=== PATIENT | male | born 1965 | race Caucasian/White ===

== ENCOUNTER → 2022-02-13 09:30 | Outpatient (BNVA) | payer OTHER, SELFPAY | PROVIDERS: PCP Nurse Practitioner; Visit Provider Nurse Practitioner | DX: E78.5 Hyperlipidemia, unspecified (principal); Z86.39 Personal history of other endocrine, nutritional and metabolic disease | CPT/HCPCS: 80053; 80061; 82306; 84443; 85025 ==

== ENCOUNTER 2022-04-22 09:47 | Emergency (ER) | payer OTHER, SELFPAY ==
[2022-04-22 10:16] VITALS: BP 157/99; PULSE 64; RESP 18; TEMP 36.8; O2SAT 96; BMI 24.7
--- NOTE | 2022-04-22 10:34 | ECG_ITS ---
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 Measurements Intervals [place] Rate: 57 P: 36 OK: 177 QRS: 5 QRSD: 96 T: 30 QT: 409 QTc: 400 Interpretive Statements SINUS BRADYCARDIA No previous ECG available for comparison Electronically Signed On 04-22-2022 18:33:58 CDT by Brian Israel M.D. [id number]
[2022-04-22 10:53] LABS: Basophils % 0.3 %; Eosinophils # 0.1 10^3/uL (0.0-0.8); Eosinophils % 0.9 %; Hematocrit 49.5 % (42.0-52.0); Hemoglobin 16.8 g/dL (11.7-16.6); Lymphocytes # 2.4 10^3/uL (0.8-4.8); Lymphocytes % 24.9 %; Mean Corpuscular HGB Conc 33.9 g/dL (30.0-36.0); Mean Corpuscular Hemoglobin 32.8 pg (28.0-34.0); Mean Corpuscular Volume 96.7 fl (80-94); Mean Platelet Volume 11.2 fL (7.4-10.4); Monocytes # 0.8 10^3/uL (0.2-0.9); Monocytes % 8.6 %; Neutrophils # 6.36 10^3/uL (1.8-7.7); Nucleated Red Blood Cells % 0 %; Platelet Count 321 10^3/cmm (130-400); Red Blood Count 5.12 10^6/uL (4.1-5.3); White Blood Count 9.8 10^3/uL (4.0-10.0)
[2022-04-22 11:18] LABS: Add Urine Microscopic? NO; Charge for UA Resulting for Rev
[2022-04-22 11:21] LABS: Lactate (Lactic Acid level) 1.3 mmol/L (0.5-2.2)
[2022-04-22 11:22] LABS: Alanine Aminotransferase 25 U/L (0-41); Albumin Level 4.7 g/dL (3.5-5.2); Alkaline Phosphatase 85 U/L (40-130); Anion Gap 16.1 (5-19); Aspartate Amino Transferase 18 U/L (0-40); Blood Urea Nitrogen 15 mg/dL (6-20); Calcium 9.6 mg/dL (8.5-10.5); Carbon Dioxide 26 mmol/L (22-29); Chloride 98 mmol/L (98-107); Globulin 3.3 g/dL (1.3-4.6); Glomerular Filtration Rate 99.6 mL/min (90-130); Glucose 87 mg/dL (65-115); Lipase 20 U/L (13-60); Osmolality Calculated 282 mOsm/kg (285-295); Potassium 4.1 mmol/L (3.5-5.1); Sodium 136 mmol/L (136-145); Total Bilirubin 0.5 mg/dL (0.15-1.2)
[2022-04-22 11:31] LABS: Bilirubin Urine Neg (Negative); Blood Urine Neg (Negative); Glucose Urine UA Norm (Normal); Ketones Urine Negative (Negative); Leukocyte Esterase Urine Negative (Negative); Nitrate Urine Negative (Negative); Protein Urine Neg (Negative); Specific Gravity, Urine 1.015 (1.005-1.030); Urine Appearance Clear (CLEAR); Urine Color Yellow (Yellow); Urobilinogen Urine Norm (Negative); pH Urine 5 (5-7)
--- NOTE | 2022-04-22 11:46 | CT_ITS ---
WS: [id number] CT ABDOMEN PELVIS TECHNIQUE: Contrast-enhanced CT of the abdomen and pelvis with coronal and sagittal reformatted image s. CLINICAL INFORMATION: abd pn COMPARISON: None. DLP: 558.[address] scans at [facility] use at least one of these dose optimization techniques: automated e xposure control; mA and/or kV adjustment per patient size (includes targeted exams where dose is matc hed to clinical indication); or iterative reconstruction. FINDINGS: Mild diffuse fatty infiltration liver. Normal portal vein and splenic vein. Prominent gallstone in th e gallbladder measuring 2.0 CM. No gallbladder wall thickening or pericholecystic fluid. Lung bases are well aerated. Adrenal glands are normal. Normal pancreatic parenchymal enhancement. Ad renal glands are normal. No hydronephrosis in either kidney. LEFT peripelvic renal cysts/extrarenal p charli. No hydronephrosis in either kidney. Pelvic phleboliths. Normal caliber abdominal aorta. Aortic calcification. Retroaortic LEFT renal vein. Sigmoid diverticulosis. No evidence of high-grade small or large bowel obstruction. Normal appendix are lower quadrant. Disc space narrowing worse L5-S 1. Fat-containing inguinal hernia. CT/CT abdomen pelvis w con* [id number] IMPRESSION: 1. Normal appendix in the Right Lower quadrant. No evidence of acute appendici tis. 2. Sigmoid diverticulosis. No evidence of acute diverticulitis. 3. No evidence of small or large bowel obstruction. 4. Prominent gallstone in the gallbladder measuring 2.0 CM. No gallbladder wal l thickening or pericholecystic fluid. 5. Mild diffuse fatty infiltration liver. 6. No other acute findings.
[2022-04-22] MEDS: iohexol 350 mg/mL 100 mL Btl IV (12:02)
[2022-04-22 14:04] VITALS: BP 137/97; PULSE 73; RESP 16; O2SAT 97
[2022-04-22 14:05] VITALS: BP 137/97; PULSE 67; RESP 16; O2SAT 97
--- NOTE | 2022-04-23 01:02 | W.ED.ABDPA2 ---
HPI - Abdominal Pain General: Chief Complaint: Abdominal Pain Stated Complaint: Abd pain Time Seen by Provider: 04/22/22 10:22 History of Present Illness: 57-year-old male patient presents to the emergency department with diffuse abdominal pain. Patient states he does have history of a gallstone that he has had for like 20 years. Patient states he has had some nausea but no vomiting patient states that he actually had a very significant appetite. Patient states he just wanted to be checked to make sure something was not wrong. Patient denies any fever. Patient denies any urinary symptoms. Patient denies any flank pain or back pain. Patient denies any other complaints Associated Symptoms: Denies change in bowel habits, chills, constipation, GI cramping, diarrhea, dysuria, fever(s), hematuria, hematemesis, nausea, syncope and vomiting Review of Systems Const: Denies: fever(s), chills, body aches, change in appetite, change in weight, fatigue, malaise or diaphoresis Eyes: Denies: change in vision, blurry vision, blind spots, photophobia, eye discomfort, eye discharge, eye redness, floaters or seeing flashes ENMT: Denies: throat pain, uvular edema, enlarged tonsils, odynophagia, hoarseness, mouth pain, swelling of lips/tongue, oral sores, bleeding gums, dental pain, dry mouth, ear or mastoid pain, ear discharge, change in hearing, tinnitus, disequilibrium, nasal discharge, nasal congestion, post nasal drip or sinus pain Card: Denies: chest pain, palpitations, irregular heart rhythm, edema, swelling of feet/ankles, lightheadedness, syncope, pre-syncope, dyspnea on exertion, orthopnea, leg pain with exertion or acrocyanosis Resp: Denies: dyspnea, productive cough, non-productive cough, wheezing, stridor, pain on inspiration, change in phlegm color, hemoptysis or chest congestion GI: Denies: nausea, vomiting, hematemesis, dysphagia, diarrhea, constipation, GI cramping, change in bowel habits or rectal pain : Denies: flank pain, dysuria, urinary frequency, urinary urgency, urinary hesitancy or hematuria Musc: Denies: neck pain, back pain, extremity pain, extremity swelling, joint pain, joint swelling, joint redness, joint warmth or deformity Skin/Breast: Denies: rash, pruritus, erythema, sores, new lesions, changes in skin color or dry skin Neuro: Denies: headache(s), numbness in extremities, weakness in extremities, sensory changes, lack of coordination, difficulty walking, frequent falls, dizziness, vertigo, confusion, behavioral changes, Slurred speech present, difficulty communicating thoughts or seizure-like activity Psych: Denies: anxiety, depression, suicidal ideation or homicidal ideation Endo: Denies: polyuria, polydipsia, tired all the time, cold intolerance, excessive sweating, flushing, hot flashes or heat intolerance Porfirio/Lymph: Denies: easy bruising, easy bleeding, petechiae, purpura, enlarged lymph nodes or tender lymph nodes All/Imm: Denies: urticaria, throat swelling, tongue swelling, facial swelling, acute wheezing or itchy eyes PFSH ED PFSH: Social History Smoking and tobacco status: never smoked Physical Exam Const: COMMON NORMALS: no acute distress, patient oriented x3, healthy appearing, alert and well nourished GENERAL APPEARANCE: cooperative, comfortable, well kempt and well developed; not ill appearing ORIENTATION/CONSCIOUSNESS: Yes awake, Yes oriented to person, Yes oriented to place and Yes oriented to time HENMT: COMMON NORMALS: normocephalic, atraumatic, hearing grossly normal bilaterally, external ears normal, EAC's normal, TM's normal bilaterally, Normal external nose present, Normal nasal mucous membranes and turbinates present and moist oral mucous membranes HEAD & SCALP: normal to inspection, normocephalic and atraumatic FACE & SINUS: normal facial exam, sinuses nontender and face symmetric NOSE: Normal external nose present, Normal nares present, Normal nasal mucous membranes and turbinates present, No nasal discharge present and Abnormal external nose present EXTERNAL EAR: Yes external ears normal and Yes mastoids normal EXTERNAL AUDITORY CANAL: EAC's normal TYMPANIC MEMBRANE: TM's normal bilaterally MOUTH: Normal oral and palatal mucosa present, lip normal, tongue normal and Normal salivary glands and ducts present THROAT: no uvular edema Eye: COMMON NORMALS: Equal, round and reactive pupils present, EOMs intact bilaterally, conjunctivae normal, no scleral icterus and no papilledema GENERAL EYE: appearance normal, both eyes and all related structures EYELID: eyelids normal CONJUNCTIVA: Yes conjunctivae normal SCLERA: sclerae normal CORNEA: Yes corneas normal PUPIL: Yes Equal, round and reactive pupils present DIRECT OPHTHALMOSCOPY: Yes no papilledema Neck/C-Spine: COMMON NORMALS: full ROM, no lymphadenopathy, supple, no meningeal signs, no JVD and Thyroid normal GENERAL: Yes normal visual inspection and Yes trachea midline THYROID: Thyroid normal CERVICAL SPINE: Yes cervical ROM normal Lymph: LYMPHATIC: no lymphadenopathy noted and no lymphedema noted Chest: COMMONS NORMALS: normal inspection of the chest and normal palpation of entire chest wall Resp: COMMON NORMALS: normal respiratory effort, No retractions, No use of accessory muscles and clear to auscultation bilaterally EFFORT & INSPECTION: Yes able to speak in complete sentences and Yes symmetric chest movement AUSCULTATION: clear to auscultation bilaterally Cardio: COMMON NORMALS: no JVD, regular rate and regular rhythm RATE: regular rate RHYTHM: regular rhythm GI: COMMON NORMALS: Normal to inspection, nondistended, normoactive bowel sounds present, Soft to palpation, non-tender, No hepatosplenomegaly present, no masses and no bruits INSPECTION: Yes normal to inspection AUSCULTATION: Yes normoactive bowel sounds PALPATION: Yes Soft to palpation and Yes No hepatosplenomegaly present PERCUSSION: normal to percussion RECTAL EXAM: Yes deferred : COMMON NORMALS: Yes no CVA tenderness BLADDER/KIDNEY EXAM: Yes no CVA tenderness Back/Pelvis: COMMON NORMALS: no CVA tenderness, thoracic and lumbar spine normal to inspection, no thoracic nor lumbar tenderness, thoraco-lumbar ROM normal and straight leg raise negative bilaterally THORACIC SPINE/UPPER BACK: Yes normal to inspection LUMBAR SPINE/LOWER BACK: Yes normal to inspection Extremity: COMMON NORMALS: normal to inspection, full ROM and capillary refill normal GENERAL: Yes normal exam except as noted Neuro: COMMON NORMALS: patient oriented x3, CN's II-XII intact bilaterally, moves all extremities, no focal motor deficits, no sensory deficits noted, deep tendon reflexes 2+ bilaterally and gait normal SENSORIUM/ORIENTATION: Yes alert, Yes oriented to person, Yes oriented to place and Yes oriented to time MENINGEAL SIGNS: Yes no meningeal signs CRANIAL NERVES: Yes CN normal except as noted SPEECH: speech normal GAIT: Yes Normal gait present SENSORY EXAM: Yes extremities MOTOR EXAM: 5/5 motor strength present throughout Psych: COMMON NORMALS: mental status grossly normal, Normal thought process present, cooperative, normal affect, speech normal, activity/motor behavior normal, denies hallucinations, denies homicidal ideation and denies suicidal ideation APPEARANCE: Yes grossly normal and Yes well kempt ATTITUDE: Yes calm ACTIVITY/MOTOR BEHAVIOR: Yes appropriate eye contact SPEECH: Yes normal speech THOUGHT PROCESS: Normal thought process present THOUGHT CONTENT: Yes Normal thought content present ATTENTION/CONCENTRATION: Yes attention grossly intact MEMORY/COGNITION: Yes memory grossly intact INSIGHT: Good insight present (Psych) JUDGEMENT: Good judgement present (Psych) Skin: COMMON NORMALS: no rashes or lesions noted, no wounds, turgor normal, no jaundice, no petechiae and no mottling GENERAL SKIN EXAM: no rashes or lesions noted and turgor normal Course Vital Signs: Vital signs: Vital Signs Temperature 98.3 F 04/22/22 10:16 Pulse Rate 67 04/22/22 14:05 Respiratory Rate 16 04/22/22 14:05 Blood Pressure 137/97 04/22/22 14:05 Pulse Oximetry 97 04/22/22 14:05 Oxygen Delivery Me thod 04/22/22 14:04 MDM - Abdominal Pain Medical Decision Making Patient is well-appearing nontoxic and in no acute distress.57-year-old male patient presents to the emergency department with diffuse abdominal pain. Patient states he does have history of a gallstone that he has had for like 20 years. Patient states he has had some nausea but no vomiting patient states that he actually had a very significant appetite. Patient states he just wanted to be checked to make sure something was not wrong. Patient denies any fever. Patient denies any urinary symptoms. Patient denies any flank pain or back pain. Patient denies any other complaints. Patient's ultrasound reveals a normal appendix there is no evidence of appendicitis. Patient does have evidence of diverticulosis with no diverticulitis. There is no evidence of bowel obstruction. Patient does have a gallstone in the gallbladder measuring 2 cm there is no gallbladder wall thickening or fluid noted. Patient's has been updated of this. Patient states this is the status of this gallstone and has not changed in size. Patient does not want a surgical referral as he states he will not have surgery. Patient states he will follow-up with his primary care physician if this does not get better. I will send patient home with a prescription for Carafate as well as have him start on H2 inhibitor. I discussed with patient return precautions as well as home care I do not feel any further testing is warranted at this time. Lab Data : 04/22/22 10:29 04/22/22 10:29 Labs/Radiology: Radiology Impressions Abdomen/Pelvis CT 04/22/22 11:46 IMPRESSION: 1. Normal appendix in the Right Lower quadrant. No evidence of acute appendicitis. 2. Sigmoid diverticulosis. No evidence of acute diverticulitis. 3. No evidence of small or large bowel obstruction. 4. Prominent gallstone in the gallbladder measuring 2.0 CM. No gallbladder wall thickening or pericholecystic fluid. 5. Mild diffuse fatty infiltration liver. 6. No other acute findings. Laboratory Results WBC 9.8 10^3/uL (4.0-10.0) 04/22/22 10:29 RBC 5.12 10^6/uL (4.1-5.3) 04/22/22 10:29 Hgb 16.8 g/dL (11.7-16.6) H 04/22/22 10:29 Hct 49.5 % (42.0-52.0) 04/22/22 10:29 MCV 96.7 fl (80-94) H 04/22/22 10:29 MCH 32.8 pg (28.0-34.0) 04/22/22 10:29 MCHC 33.9 g/dL (30.0-36.0) 04/22/22 10:29 RDW 12.0 % (12.1-15.1) L 04/22/22 10:29 Plt Count 321 10^3/cmm (130-400) 04/22/22 10:29 MPV 11.2 fL (7.4-10.4) H 04/22/22 10:29 Neut % (Auto) 65.0 % 04/22/22 10:29 Lymph % (Auto) 24.9 % 04/22/22 10:29 [place] % (Auto) 8.6 % 04/22/22 10:29 Eos % (Auto) 0.9 % 04/22/22 10:29 Baso % (Auto) 0.3 % 04/22/22 10:29 Neut # (Auto) 6.36 10^3/uL (1.8-7.7) 04/22/22 10:29 Lymph # (Auto) 2.4 10^3/uL (0.8-4.8) 04/22/22 10:29 [place] # (Auto) 0.8 10^3/uL (0.2-0.9) 04/22/22 10:29 Eos # (Auto) 0.1 10^3/uL (0.0-0.8) 04/22/22 10:29 Baso # (Auto) 0.0 10^3/uL (0.0-0.1) 04/22/22 10:29 Nucleated RBC % (auto) 0 % 04/22/22 10:29 Nucleated RBCs # 0.0 /100WBC 04/22/22 10:29 Sodium 136 mmol/L (136-145) 04/22/22 10:29 Sodium Cancelled 04/22/22 10:29 Potassium 4.1 mmol/L (3.5-5.1) 04/22/22 10:29 Potassium Cancelled 04/22/22 10:29 Chloride 98 mmol/L (98-107) 04/22/22 10:29 Chloride Cancelled 04/22/22 10:29 Carbon Dioxide 26 mmol/L (22-29) 04/22/22 10:29 Carbon Dioxide Cancelled 04/22/22 10:29 Anion Gap 16.1 (5-19) 04/22/22 10:29 Anion Gap Cancelled 04/22/22 10:29 BUN 15 mg/dL (6-20) 04/22/22 10:29 BUN Cancelled 04/22/22 10:29 Creatinine 0.8 mg/dL (0.7-1.2) 04/22/22 10:29 Creatinine Cancelled 04/22/22 10:29 GFR Calculation 99.6 mL/min (90-130) 04/22/22 10:29 GFR Calculation Cancelled 04/22/22 10:29 Glucose 87 mg/dL (65-115) 04/22/22 10:29 Glucose Cancelled 04/22/22 10:29 Calculated Osmolality 282 mOsm/kg (285-295) L 04/22/22 10:29 Calculated Osmolality Cancelled 04/22/22 10:29 Lactate 1.3 mmol/L (0.5-2.2) 04/22/22 10:29 Calcium 9.6 mg/dL (8.5-10.5) 04/22/22 10:29 Calcium Cancelled 04/22/22 10:29 Total Bilirubin 0.5 mg/dL (0.15-1.2) 04/22/22 10:29 Total Bilirubin Cancelled 04/22/22 10:29 AST 18 U/L (0-40) 04/22/22 10:29 AST Cancelled 04/22/22 10:29 ALT 25 U/L (0-41) 04/22/22 10:29 ALT Cancelled 04/22/22 10:29 Alkaline Phosphatase 85 U/L (40-130) 04/22/22 10:29 Alkaline Phosphatase Cancelled 04/22/22 10:29 Total Protein 8.0 g/dL (6.6-8.7) 04/22/22 10:29 Total Protein Cancelled 04/22/22 10:29 Albumin 4.7 g/dL (3.5-5.2) 04/22/22 10:29 Albumin Cancelled 04/22/22 10:29 Globulin 3.3 g/dL (1.3-4.6) 04/22/22 10:29 Globulin Cancelled 04/22/22 10:29 Lipase 20 U/L (13-60) 04/22/22 10:29 Lipase Cancelled 04/22/22 10:29 Urine Color Yellow (Yellow) 04/22/22 11:11 Urine Appearance Clear (CLEAR) 04/22/22 11:11 Urine pH 5 (5-7) 04/22/22 11:11 Ur Specific [place] 1.015 (1.005-1.030) 04/22/22 11:11 Urine Protein Neg (Negative) 04/22/22 11:11 Urine Glucose (UA) Norm (Normal) 04/22/22 11:11 Urine Ketones Negative (Negative) 04/22/22 11:11 Urine Blood Neg (Negative) 04/22/22 11:11 Urine Nitrate Negative (Negative) 04/22/22 11:11 Urine Bilirubin Neg (Negative) 04/22/22 11:11 Urine Urobilinogen Norm mg/dL (Negative) 04/22/22 11:11 Ur Leukocyte Esterase Negative (Negative) 04/22/22 11:11 Discharge Plan Discharge Patient Disposition: Home Clinical Impression: Gallstone Condition: Stable Prescriptions: New sucralfate [Carafate] 100 mg/mL suspension 1 g PO BID 28 Days Qty: 560 0RF No Action Centrum Silver Ultra Men's 300-600-300 mcg Tablet 1 tab PO DAILY Discharge Orders: Discharge ED (Routine); Ordered 04/22/22 Ordered By: Wanda Hu Referrals: Serenity Samuels FNP [Primary Care Provider] - 1-3 days (as needed) Discharge Diet: As Directed Discharge Activity: Increase activity as tolerated Patient Instructions: Gallstones (ED), Opioid Safety, Pain Management Activity Restrictions/Additional Instructions: Please take meds as prescribed Please take Nexium Over the counter as directed Please follow up with Surgeon Return to ER with any worsening of symptoms Coding Level of Care Code ED Seed Packer for Terra Dominguez
== END 2022-04-22 14:10 | disposition home or self-care (01) ==
PROVIDERS: Emergency Medicine; Emergency Provider Registered Nurse; PCP Nurse Practitioner
DX: K80.80 Other cholelithiasis without obstruction (principal)
CPT/HCPCS: 74177; 80053; 81003; 83605; 83690; 85025; 93005; 99285; Q9967

== ENCOUNTER → 2023-11-25 11:04 | Outpatient (BNVA) | payer OTHER, SELFPAY | PROVIDERS: PCP Nurse Practitioner Family; Visit Provider Nurse Practitioner Family | DX: Z00.00 Encounter for general adult medical examination without abnormal findings (principal); Z13.6 Encounter for screening for cardiovascular disorders; Z79.899 Other long term (current) drug therapy | CPT/HCPCS: 80053; 80061; 81003; 82306; 83036; 84443; 85025; G0103 ==

== ENCOUNTER → 2025-05-05 14:40 | Outpatient (BNVA) | payer OTHER, SELFPAY | PROVIDERS: PCP Nurse Practitioner Family; Visit Provider Nurse Practitioner Family | DX: Z13.6 Encounter for screening for cardiovascular disorders (principal); Z00.00 Encounter for general adult medical examination without abnormal findings; Z79.899 Other long term (current) drug therapy | CPT/HCPCS: 80053; 80061; 81003; 82306; 83036; 84443; 85025; G0103 ==